=== PATIENT | female | born 1955 | race Caucasian/White ===

== ENCOUNTER 2020-10-17 10:44 | Inpatient (IN) | payer OTHER ==
[2020-10-17] MEDS ORDERED: SODIUM CHLORIDE 1,000 ML IV STA (11:01)
[2020-10-17 11:15] VITALS: BMI 33.5
[2020-10-17] MEDS ORDERED: NOREPINEPHRINE BITARTRATE 8,000 MCG/500 ML BAG IVPB SCH (11:15)
[2020-10-17] MEDS ORDERED: EPINEPHrine 1:10,000 (P-F SYR) 1 MG/10 ML DISP.SYRIN IVPUSH ONE (12:04)
[2020-10-17] MEDS ORDERED: SODIUM BICARBONATE 8.4% 50 MEQ/50 ML DISP.SYRIN IVPUSH ONE (12:04)
[2020-10-17] MEDS ORDERED: CALCIUM CHLORIDE 10% 1 GM/10 ML *VIAL IVPUSH ONE (12:04)
[2020-10-17 12:07] LABS: BASO % 0.3 % (0-2.0); EOS % 1.2 % (0-4.5); HEMATOCRIT 34.8 % (32.4-45.2); HEMOGLOBIN 10.9 GM/dL (10.7-15.3); LYMPH % 21.4 % (8-40); MCH 25.8 pg (25.7-33.7); MCHC 31.3 g/dl (32.0-36.0); MEAN CELL VOLUME 82.4 fl (80-96); MEAN PLT VOLUME 8.8 fl (7.5-11.1); MONO % 1.7 % (3.8-10.2); NEUT % 75.4 % (42.8-82.8); PLATELET COUNT 259 K/MM3 (134-434); RBC 4.22 M/mm3 (3.60-5.2); RDW 17.2 % (11.6-15.6); WHITE BLOOD COUNT 16.7 K/mm3 (4.0-10.0)
[2020-10-17 12:14] LABS: INR 1.04 (0.83-1.09); PROTHROMBIN TIME (PATIENT) 12.8 SEC (9.7-13.0)
[2020-10-17 12:17] LABS: ACTIVATED PTT 41.1 SECONDS (25.2-36.5)
[2020-10-17 12:30] LABS: CHLORIDE 102 mmol/L (98-107); SODIUM 144 mmol/L (136-145)
[2020-10-17 12:32] LABS: CALCIUM 10.8 mg/dL (8.5-10.1)
[2020-10-17 12:33] LABS: ALBUMIN 2.5 g/dl (3.4-5.0); ANION GAP 17 MMOL/L (8-16); BLOOD UREA NITROGEN 24.4 mg/dL (7-18); CO2 25 mmol/L (21-32); GLUCOSE,RANDOM 181 mg/dL (74-106); MAGNESIUM 2.4 mg/dL (1.8-2.4)
[2020-10-17 12:36] LABS: CREATININE 0.9 mg/dL (0.55-1.3); SGOT/AST 184 U/L (15-37); SGPT/ALT 111 U/L (13-61)
[2020-10-17 12:38] LABS: BILIRUBIN,TOTAL 0.3 mg/dL (0.2-1); TOT PROT 6.2 g/dl (6.4-8.2)
[2020-10-17 12:39] LABS: ALK PHOS 253 U/L (45-117)
[2020-10-17 13:16] LABS: ARTERIAL BLD GAS O2 SATURATION 95.2 mmHg (95-98); ARTERIAL BLOOD GAS BASE EXCESS -9.7 mmol/L (-2-2); ARTERIAL BLOOD GAS PO2 95.5 mmHg (80-100)
[2020-10-17 13:17] LABS: ALLENS TEST POSITIVE
[2020-10-17 13:18] LABS: VENT MODE A/C; VENT RATE 16
[2020-10-17 13:19] LABS: ARTERIAL BLOOD GAS pH 7.161 (7.350-7.450)
[2020-10-17] MEDS ORDERED: SODIUM CHLORIDE 1,000 ML IV SCH (14:45)
[2020-10-17] MEDS ORDERED: MORPHINE SULFATE/0.9% NACL/PF 100 MG/100 ML BAG IVPB SCH (15:45)
[2020-10-17] MEDS ORDERED: DOPAMINE 400 MG/D5W - 400,000 MCG/250 ML INFUS.BAG IVPB ONE (17:07)
[2020-10-17] MEDS ORDERED: VASOPRESSIN 40 UNITS in SODIUM CHLORIDE 98 ML IVPB SCH (17:15)
[2020-10-17 18:29] VITALS: BP 60/37; PULSE 52
[2020-10-17 18:39] VITALS: TEMP 97.1
[2020-10-17] MEDS ORDERED: CHLORHEXIDINE GLUCONATE 4% CLEANSER FOR DECOLONIZATION TP SCH (22:00)
[2020-10-17] MEDS ORDERED: MUPIROCIN 2% TOPICAL OINTMENT FOR DECOLONIZATION NS SCH (22:00)
== END 2020-10-17 17:30 | disposition expired | DRG 208 ==
LOC: JER 10:44 → JERBED 11:03 → JICU 16:44
PROVIDERS: ADMIT Family Medicine; ATTEND Family Medicine
PROC: 5A1935Z Respiratory Ventilation, Less than 24 Consecutive Hours (ICD-10-PCS; principal; 2020-10-17)
PROC: 5A12012 Performance of Cardiac Output, Single, Manual (ICD-10-PCS; 2020-10-17)
DX: J96.11 Chronic respiratory failure with hypoxia (principal); G93.1 Anoxic brain damage, not elsewhere classified; I46.9 Cardiac arrest, cause unspecified; G40.909 Epilepsy, unspecified, not intractable, without status epilepticus; E11.9 Type 2 diabetes mellitus without complications; J44.9 Chronic obstructive pulmonary disease, unspecified; Z99.81 Dependence on supplemental oxygen; Z93.1 Gastrostomy status; Z93.0 Tracheostomy status; Z66 Do not resuscitate
CPT/HCPCS: 36415; 36600; 70450-TC; 71045-TC-FY; 80053; 82550; 82803; 83735; 84484; 85025; 85610; 85730; 87040; 93005; 93010; 99285-25; C9803; U0003; U0005